=== PATIENT | female | born 1995 | race African-American/Black ===

== ENCOUNTER 2019-02-05 14:03 | Emergency (ER) | payer SELFPAY ==
[~2019-02-05] VITALS: Ht 160 cm; Wt 91.0 kg
[2019-02-05] MEDS ORDERED: KETOROLAC 30MG/ML VIAL IV ONE (15:00)
[2019-02-05] MEDS ORDERED: KETOROLAC 30MG/ML VIAL IM ONE (15:15)
[2019-02-05 16:51] VITALS: BP 134/67
== END 2019-02-05 16:52 | disposition home or self-care (01) ==
LOC: ER 14:03
DX: S09.8XXA Other specified injuries of head, initial encounter (principal); S16.1XXA Strain of muscle, fascia and tendon at neck level, initial encounter; V49.49XA Driver injured in collision with other motor vehicles in traffic accident, initial encounter; Y93.89 Activity, other specified; Y92.411 Interstate highway as the place of occurrence of the external cause
CPT/HCPCS: 70450; 72125; 81025; 96372; 99284; J1885